=== PATIENT | male | born 1930 | race Caucasian/White ===

== ENCOUNTER → 2016-10-07 | Outpatient (CLI) | payer MEDICARE, BC ==
[~2016-10-07] MED LIST: OMNICEF 300MG300 MG PO; PERCOCET 325 MG1 TA2 PO; PRILOSEC 20MG20 MG PO; ULTRAM 50MG TAB50 MG PO; VYTORIN; VYTORIN 10 MG-21 TAB PO; XARELTO15 MG PO; XARELTO20 MG PO; ZOFRAN4 MG PO
== END ==
LOC: COL.RAD 13:30
DX: N20.0 Calculus of kidney (principal); R10.11 Right upper quadrant pain

== ENCOUNTER 2017-07-16 10:00 | Outpatient (RCR) | payer MEDICARE, BC | END 2017-07-25 09:20 | disposition home or self-care (01) | LOC: WSPT 10:00 | DX: M79.602 Pain in left arm (principal); M79.1 Myalgia | CPT/HCPCS: G8987-GO; G8988-GO ==

== ENCOUNTER 2018-05-30 19:12 | Emergency (ER) | payer MEDICARE, BC ==
[~2018-05-30] VITALS: Ht 182.9 cm; Wt 79.1 kg
[2018-05-30 19:16] VITALS: TEMP 96.7
[2018-05-30] MEDS ORDERED: CEPHALEXIN500 M1 PO (19:54)
[2018-05-30] MEDS ORDERED: DOXYCYCLINE 10100 MG PO (19:54)
[2018-05-30] MEDS ORDERED: ASPIRIN 81M81 MG/TA2 PO (20:03)
[2018-05-30] MEDS ORDERED: ARICEPT10 MG PO (20:05)
[2018-05-30 20:44] VITALS: BP 143/67; PULSE 55
== END 2018-05-30 20:50 | disposition home or self-care (01) ==
LOC: COL.ER 19:12
DX: L03.116 Cellulitis of left lower limb (principal); L03.115 Cellulitis of right lower limb; K21.9 Gastro-esophageal reflux disease without esophagitis; Z86.711 Personal history of pulmonary embolism; Z79.82 Long term (current) use of aspirin

== ENCOUNTER 2018-08-19 19:21 | Emergency (ER) | payer MEDICARE, BC ==
[~2018-08-19] VITALS: Ht 180.3 cm; Wt 77.3 kg
[~2018-08-19 19:21] MED LIST changes: +ARICEPT10 MG PO; +ASPIRIN 81M81 MG/TA2 PO; +CEPHALEXIN500 M1 PO; +DOXYCYCLINE 10100 MG PO
[2018-08-19 19:25] VITALS: TEMP 97.8
[2018-08-19 19:52] LABS: BASO # 0.1 (0.0-0.2); BASO % 1.2 % (0.0-2.0); EOS # 0.3 (0.0-0.7); EOS % 5.5 % (0-4.0); GRAN # 2.6 (1.4-6.5); GRAN % 45.1 % (42.2-75.2); HEMATOCRIT 41.5 % (42.0-52.0); HEMOGLOBIN 12.9 g/dl (13.5-18.0); LYMPH % 35.8 % (20.0-51.0); MEAN CELL VOLUME 95 fl (80.0-100.0); MEAN CORPUSCULAR HEMOGLOBIN 30 pg (27.0-31.0); MEAN CORPUSCULAR HGB CONC 31 g/dl (33.0-37.0); MEAN PLATELET VOLUME 9.8 fl (7.4-10.4); MONO # 0.7 (0.1-0.6); MONO % 12.2 % (1.7-9.3); PLATELET COUNT 225 K/mm3 (130-400); RED BLOOD COUNT 4.37 M/mm3 (4.20-5.60)
[2018-08-19 20:01] LABS: ALBUMIN 3.8 gm/dL (3.5-5.0); BILIRUBIN,TOTAL 0.3 mg/dL (0.0-1.0); CALCIUM 8.5 mg/dL (8.4-10.2); CREATININE, serum 1.31 mg/dL (0.66-1.25); POTASSIUM 3.8 mmol/L (3.4-5.0)
[2018-08-19 21:06] LABS: COLLECTION METHOD CLEAN CATCH
[2018-08-19 21:13] LABS: MUCOUS Present /lpf; PH 5 (5-8); SQUAMOUS EPITHELIAL 0-2 /hpf; URINE APPEARANCE Clear; URINE BACTERIA None Seen /hpf; URINE BILIRUBIN Negative (NEGATIVE); URINE BLOOD Negative (NEGATIVE); URINE COLOR Yellow; URINE GLUCOSE Negative (NEGATIVE); URINE KETONE Negative (NEGATIVE); URINE LEUKOCYTE ESTERASE Negative (NEGATIVE); URINE NITRATE Negative (NEGATIVE); URINE PROTEIN(semi-quant) Negative (NEGATIVE); URINE UROBILINOGEN Negative (NEGATIVE)
[2018-08-19 21:41] VITALS: BP 139/67; PULSE 56
== END 2018-08-19 21:45 | disposition home or self-care (01) ==
LOC: COL.ER 19:21
PROVIDERS: Emergency Medicine
DX: K40.90 Unilateral inguinal hernia, without obstruction or gangrene, not specified as recurrent (principal); N18.9 Chronic kidney disease, unspecified; K21.9 Gastro-esophageal reflux disease without esophagitis; E78.5 Hyperlipidemia, unspecified; Z87.442 Personal history of urinary calculi; Z98.890 Other specified postprocedural states; Z79.82 Long term (current) use of aspirin
CPT/HCPCS: J2405; J3010; J7030; J7040; Q9967

== ENCOUNTER 2018-09-01 05:29 | Day surgery (SDC) | payer MEDICARE, BC ==
[~2018-09-01] VITALS: Ht 182.9 cm; Wt 80.4 kg
[2018-09-01] MEDS ORDERED: CELEBREX 200MG200 MG PO (05:48)
[2018-09-01] MEDS ORDERED: ARICEPT10 MG PO (05:48)
[2018-09-01] MEDS ORDERED: TYLENOL 500MG500 MG PO (05:49)
[2018-09-01 06:10] VITALS: BP 156/71; PULSE 64; TEMP 98.5
--- NOTE | 2018-09-01 06:18 | NUR ---
TO RM AT 0536- CALL LIGHT IN REACH SONS AT BEDSIDE.
[2018-09-01 09:08] VITALS: BP 159/81; PULSE 69
--- NOTE | 2018-09-01 09:08 | NUR ---
TO RM 7 PER CART FROM [facility].R. ALERT ORIENTED X3, STILL HAVING SOME CONFUSION OF WHY NOW HE HAS PAIN ON RIGHT GROIN. AFTER REMINDING HIM OF SURGERY, HE WOULD STATE HE UNDERSTOOD. ODOM SET DRESSING ON INCISION SITE CLEAN DRY INTACT. C/O PAIN 4/10 AFTER EXPLAINING THE PAIN SCALE. RECEIVED WATER. SONS AT BEDSIDE.
[2018-09-01 09:25] VITALS: BP 171/85; PULSE 74
--- NOTE | 2018-09-01 09:25 | NUR ---
RECEIVED MUFFIN AND GRAPE JUICE.
[2018-09-01] MEDS ORDERED: MOTRIN 600600 MG/TAB PO (09:30)
[2018-09-01] MEDS ORDERED: COLACE 100100 MG/CAP PO (09:30)
[2018-09-01] MEDS ORDERED: NORCO 325 MG-51 TAB PO (09:31)
[2018-09-01 09:40] VITALS: BP 174/74; PULSE 61
--- NOTE | 2018-09-01 09:40 | NUR ---
SITTING UP EATING AND TALKING WITH SONS
--- NOTE | 2018-09-01 09:55 | NUR ---
UP AMBULATED WITH ASSIST TO BATHROOM. VOIDED AND TOLERATED WELL. UPON RETURNING STATED THE PAIN ON THAT RIGHT SIDE WAS WORSE.
--- NOTE | 2018-09-01 09:58 | NUR ---
RECEIVED CECIL 1 TAB.
[2018-09-01 10:10] VITALS: BP 157/75; PULSE 60
--- NOTE | 2018-09-01 10:10 | NUR ---
STATED HE PAIN IS STILL THERE, BUT IT ONLY HURTS WHEN I WIGGLE AND JIGGLE LIKE THIS. (PATIENT WIGGLING)
--- NOTE | 2018-09-01 10:30 | NUR ---
PATIENT AND BOTH SONS RECEIVED DISCHARGE INSTRUCTIONS AND VERBALIZED UNDERSTANDING. DISCONTINUED IV AND COVERED SITE WITH BAND AIDE SON RUDDY ASSISTED PATIENT DRESSED.
--- NOTE | 2018-09-01 10:40 | NUR ---
DISCHARGED PER WC BY NURSING STAFF TO PRIVATE CAR IN CARE OF SON- RICH.
== END 2018-09-01 11:00 | disposition home or self-care (01) ==
LOC: SDCO 05:29
DX: K40.90 Unilateral inguinal hernia, without obstruction or gangrene, not specified as recurrent (principal); Z79.82 Long term (current) use of aspirin; Z86.711 Personal history of pulmonary embolism; K21.9 Gastro-esophageal reflux disease without esophagitis; G89.29 Other chronic pain; M25.561 Pain in right knee; I25.10 Atherosclerotic heart disease of native coronary artery without angina pectoris; D64.9 Anemia, unspecified; G30.9 Alzheimer's disease, unspecified; F02.80 Dementia in other diseases classified elsewhere, unspecified severity, without behavioral disturbance, psychotic disturbance, mood disturbance, and anxiety; I10 Essential (primary) hypertension; E78.00 Pure hypercholesterolemia, unspecified; M19.90 Unspecified osteoarthritis, unspecified site; N32.81 Overactive bladder; Z85.46 Personal history of malignant neoplasm of prostate; Z80.9 Family history of malignant neoplasm, unspecified; Z88.6 Allergy status to analgesic agent
CPT/HCPCS: C1781; J0690; J2250; J2405; J2704; J3010; J7120

== ENCOUNTER → 2019-05-10 | Outpatient (CLI) | payer MEDICARE, BC ==
[~2019-05-10] MED LIST changes: +CELEBREX 200MG200 MG PO; +COLACE 100100 MG/CAP PO; +MOTRIN 600600 MG/TAB PO; +NORCO 325 MG-51 TAB PO; +TYLENOL 500MG500 MG PO
== END ==
LOC: MHCPAIN 12:54
DX: G89.29 Other chronic pain (principal); M79.2 Neuralgia and neuritis, unspecified
CPT/HCPCS: G0463

== ENCOUNTER → 2019-08-10 | Outpatient (CLI) | payer MEDICARE, BC | LOC: MHCPAIN 11:12 | DX: G57.82 Other specified mononeuropathies of left lower limb (principal); M79.2 Neuralgia and neuritis, unspecified | CPT/HCPCS: G0463 ==

== ENCOUNTER → 2019-12-01 | Outpatient (CLI) | payer MEDICARE, BC | LOC: MHCPAIN 14:40 | DX: R10.31 Right lower quadrant pain (principal); M79.2 Neuralgia and neuritis, unspecified; G89.29 Other chronic pain | CPT/HCPCS: G0463 ==

== ENCOUNTER → 2020-04-19 | Outpatient (CLI) | payer MEDICARE, BC ==
[2020-04-19 19:04] LABS: SYNOVIAL FL. MONONUCLEAR 33.7 % (0-75); SYNOVIAL FLUID RBC 7000 /mm3 (0-0); SYNOVIAL FLUID WBC 4582 /mm3 (200-600)
[2020-04-19 19:16] LABS: SYNOVIAL FLUID APPEARANCE HAZY; SYNOVIAL FLUID COLOR AMBER
== END ==
LOC: ZCOL.LAB 18:23
PROVIDERS: Orthopaedic Surgery
DX: M25.462 Effusion, left knee (principal)

== ENCOUNTER 2020-06-24 21:19 | Inpatient (IN) | payer MEDICARE, BC ==
[~2020-06-24] VITALS: Ht 182.9 cm; Wt 75.9 kg
[2020-06-24 22:04] LABS: BASO # 0.1 (0.0-0.2); BASO % 0.8 % (0.0-2.0); EOS # 0.2 (0.0-0.7); GRAN # 4.9 (1.4-6.5); GRAN % 64.4 % (42.2-75.2); HEMATOCRIT 44.8 % (42.0-52.0); HEMOGLOBIN 14.4 g/dl (13.5-18.0); LYMPH # 1.4 (1.2-3.4); LYMPH % 18.3 % (20.0-51.0); MEAN CELL VOLUME 94 fl (80.0-100.0); MEAN CORPUSCULAR HEMOGLOBIN 30 pg (27.0-31.0); MEAN CORPUSCULAR HGB CONC 32 g/dl (33.0-37.0); MONO # 1.1 (0.1-0.6); MONO % 14.1 % (1.7-9.3); PLATELET COUNT 260 K/mm3 (130-400); RED BLOOD COUNT 4.77 M/mm3 (4.20-5.60); REDCELL DISTRIBUTION WIDTH-CV 12.8 % (11.5-14.5)
[2020-06-24 22:13] LABS: ALBUMIN 4.1 gm/dL (3.5-5.0); BILIRUBIN,TOTAL 0.5 mg/dL (0.0-1.0); CALCIUM 8.8 mg/dL (8.4-10.2); CREATININE, serum 1.47 (0.66-1.25); POTASSIUM 4.4 mmol/L (3.4-5.0); TOTAL PROTEIN 7.4 gm/dL (6.4-8.2)
[2020-06-25 07:16] LABS: BASO # 0.1 (0.0-0.2); BASO % 0.7 % (0.0-2.0); EOS # 0.1 (0.0-0.7); GRAN # 4.6 (1.4-6.5); GRAN % 64.3 % (42.2-75.2); HEMATOCRIT 39.8 % (42.0-52.0); HEMOGLOBIN 12.5 g/dl (13.5-18.0); LYMPH # 1.3 (1.2-3.4); LYMPH % 18.4 % (20.0-51.0); MEAN CELL VOLUME 95 fl (80.0-100.0); MEAN CORPUSCULAR HEMOGLOBIN 30 pg (27.0-31.0); MEAN CORPUSCULAR HGB CONC 31 g/dl (33.0-37.0); MONO % 14.2 % (1.7-9.3); PLATELET COUNT 230 K/mm3 (130-400); RED BLOOD COUNT 4.17 M/mm3 (4.20-5.60); REDCELL DISTRIBUTION WIDTH-CV 12.8 % (11.5-14.5)
[2020-06-25 08:14] VITALS: BP 138/75; PULSE 56; TEMP 98.2
[2020-06-25 08:27] VITALS: BP 138/75; PULSE 56; TEMP 98.2
[2020-06-25 08:57] LABS: BILIRUBIN,TOTAL 0.5 mg/dL (0.0-1.0); CREATININE, serum 1.39 (0.66-1.25); POTASSIUM 4.3 mmol/L (3.4-5.0); TOTAL PROTEIN 5.7 gm/dL (6.4-8.2)
--- NOTE | 2020-06-25 09:18 | NUR ---
CALLED AND NOTIFIED THAT THE PATIENT HAS ARRIVED TO THE FLOOR AND IS IN ROOM 326.
[2020-06-25 11:30] LABS: CHOLESTEROL 191 mg/dL (120-200); TRIGLYCERIDE 85 mg/dL
[2020-06-25 12:08] VITALS: BP 123/57; PULSE 51; TEMP 98.4
--- NOTE | 2020-06-25 12:26 | NUR ---
RADIOLOGY CALLED ABOUT ULTRASOUND ORDER. NO MAIL MANAGER AVAILABLE UNTIL FRIDAY MORNING.
[2020-06-25 12:41] LABS: C-REACTIVE PROTEIN < 0.5 mg/dL (0.0-0.9)
[2020-06-25] MEDS ORDERED: ASPIRIN 81M81 MG/TA2 PO (13:05)
[2020-06-25] MEDS ORDERED: CELEBREX 200MG200 MG PO (13:05)
[2020-06-25] MEDS ORDERED: VOLTAREN GEL 1%1 TU TP (13:06)
--- NOTE | 2020-06-25 13:07 | NUR ---
MEDICATIONS REVIEWED WITH PATIENTS NELSON MURRAY. MEDICATION LIST UPDATED.
--- NOTE | 2020-06-25 14:32 | NUR ---
DOUGLAS met with patient about his Care. Patient is slightly hard of hearing. Patient reports that he resides independently. Patient reports that he does not remember his PCP or the last time he has been to the doctors. Patient reports that he does not have a POA but does has a Fredo but could not remember his sons phone number. From client census son's number is [phone]. Patient denies having issues with mobility or DME use. Will continue to work with client on obtaining safe DC.
[2020-06-25 15:54] VITALS: BP 147/60; PULSE 51; TEMP 98.5
--- NOTE | 2020-06-25 19:00 | NUR ---
PATIENT HAS DENIED PAIN THROUGHOUT THE SHIFT. NO COMPLAINTS OF NAUSEA. PATIENT CURRENTLY RESTING IN BED AND TALKING TO SON ON PHONE. BED ALARM ON. CALL LIGHT IN REACH. WILL REPORT OFF TO ONCOMING NURSE.
[2020-06-25 21:00] VITALS: BP 124/75; PULSE 46; TEMP 98.2
--- NOTE | 2020-06-25 22:09 | NUR ---
IV INFILTRATED TO LTUPPER ARM. RESTARTED #20G TO LT F/A. IVF'S CONTINUED. PT FORGETFUL AND HAS ANXIETY AT TIMES WHE CAN'T REMEMBER. PT [LEASANT AND COOPERATIVE AT THIS TIME. DENIES PAIN OR NAUSEA.
[2020-06-26] VITALS (7 sets, daily range): BP systolic 133–151; BP diastolic 56–75; PULSE 52–102; TEMP 98.1–99
--- NOTE | 2020-06-26 01:19 | NUR ---
NPO AT [place]
--- NOTE | 2020-06-26 01:40 | NUR ---
ASSISTED TO BR."I DONT KMOW WHERE THE HELL I AM." REORIENTED. WANTED SCD'S OFF/
[2020-06-26 07:32] LABS: BASO % 0.6 % (0.0-2.0); EOS # 0.2 (0.0-0.7); EOS % 2.9 % (0-4.0); GRAN # 3.8 (1.4-6.5); GRAN % 59.2 % (42.2-75.2); HEMATOCRIT 41.3 % (42.0-52.0); LYMPH # 1.6 (1.2-3.4); LYMPH % 25.1 % (20.0-51.0); MEAN CELL VOLUME 95 fl (80.0-100.0); MEAN CORPUSCULAR HEMOGLOBIN 30 pg (27.0-31.0); MEAN CORPUSCULAR HGB CONC 32 g/dl (33.0-37.0); MONO # 0.8 (0.1-0.6); PLATELET COUNT 226 K/mm3 (130-400); RED BLOOD COUNT 4.35 M/mm3 (4.20-5.60); REDCELL DISTRIBUTION WIDTH-CV 12.7 % (11.5-14.5)
[2020-06-26 07:46] LABS: ALBUMIN 3.2 gm/dL (3.5-5.0); BILIRUBIN,TOTAL 0.7 mg/dL (0.0-1.0); CALCIUM 8.2 mg/dL (8.4-10.2); CREATININE, serum 1.28 (0.66-1.25); POTASSIUM 4.2 mmol/L (3.4-5.0); TOTAL PROTEIN 5.8 gm/dL (6.4-8.2)
--- NOTE | 2020-06-26 08:00 | NUR ---
PATIENT IS ORIENTED X2 WITH NOTED FORGETFULNESS/CONFUSION. 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 NOTED LOW GRADE TEMP OF 99.0, GAVE TYLENOL WITH AM MEDS. ALL OTHER VSS. PATIENT DENIES PAIN. PATIENT ALSO NEEDS REMINDING WHY HE IS IN THE HOSPITAL. CURRENTLY NPO FOR US AND POSSIBLE SURGERY TODAY. BED ALARM ON. HEAD TO TOE ASSESSMENT COMPLETE.
--- NOTE | 2020-06-26 11:23 | NUR ---
First visit from the stamp collector. No needs right now.
--- NOTE | 2020-06-26 14:09 | NUR ---
SW contacted the patient's son, Fredo (ph#[phone], c.ph#[phone]), to review d/c plan. Fredo confirms that the patient lives alone in [place] and is independent with ADLs. The patient refuses any DME. Fredo reports that he lives in [facility] and has no concerns with the patient returning back home upon discharge. SW to continue to follow.
--- NOTE | 2020-06-26 14:15 | NUR ---
NURSING STAFF HAS TALKED WITH SON, TWICE TODAY WITH PATIENT STATUS UPDATES. PATIENT'S SON CALLED AGAIN WITH ANOTHER UPDATE, MESSAGE LEFT.
--- NOTE | 2020-06-26 16:20 | NUR ---
US TECH NOW AT BEDSIDE. PATIENT HAS BEEN WAITING FOR US ALL DAY. DIET HAD BEEN CHANGED TO FAT CONTROLED HOWEVER, PATIENT HAD NOT ATE YET WHEN THE US TECH SHOWED UP.
--- NOTE | 2020-06-26 20:00 | NUR ---
Pt making attempts to get out of bed without help. Pt able to state correctly: name//year/hospital location, yet confused about situatiom. Pt reoriented to call light and requirement to call before getting up to bathroom. Later, pt tripping bed alarm stating "no one has been in here to check on me for 6 hours", reorientation provided. Bed alarm on, floor staff briefed on fall risk, confusion and need for bed alarm along with reorientation.
[2020-06-27 04:00] VITALS: BP 161/60; PULSE 54; TEMP 98.2
[2020-06-27 06:27] LABS: BASO # 0.1 (0.0-0.2); BASO % 0.8 % (0.0-2.0); EOS # 0.2 (0.0-0.7); EOS % 3.4 % (0-4.0); GRAN # 3.6 (1.4-6.5); GRAN % 58.8 % (42.2-75.2); HEMATOCRIT 37.9 % (42.0-52.0); HEMOGLOBIN 12.4 g/dl (13.5-18.0); LYMPH # 1.5 (1.2-3.4); LYMPH % 24.1 % (20.0-51.0); MEAN CELL VOLUME 92 fl (80.0-100.0); MEAN CORPUSCULAR HEMOGLOBIN 30 pg (27.0-31.0); MEAN CORPUSCULAR HGB CONC 33 g/dl (33.0-37.0); MEAN PLATELET VOLUME 10.1 fl (7.4-10.4); MONO # 0.8 (0.1-0.6); MONO % 12.7 % (1.7-9.3); PLATELET COUNT 214 K/mm3 (130-400); RED BLOOD COUNT 4.12 M/mm3 (4.20-5.60); REDCELL DISTRIBUTION WIDTH-CV 12.6 % (11.5-14.5)
[2020-06-27 06:38] LABS: BILIRUBIN,TOTAL 0.7 mg/dL (0.0-1.0); CALCIUM 8.2 mg/dL (8.4-10.2); CREATININE, serum 1.28 (0.66-1.25); TOTAL PROTEIN 5.7 gm/dL (6.4-8.2)
[2020-06-27 07:40] VITALS: BP 163/75; PULSE 58; TEMP 97.4
--- NOTE | 2020-06-27 09:15 | NUR ---
PATIENT GOING DOWN TO SURGERY. CONSENT OBTAINED FROM SON WITH 2 RN'S DUE TO PATIENT'S HX OF DEMENTIA. CONSENT ON CHART. FLUIDS TO GRAVITY. PATIENT PLACED INTO A GOWN AND WAS ABLE TO TALK TO SON ON THE PHONE BEFORE GOING DOWN TO OR. PATIENT NOW OFF THE FLOOR.
[2020-06-27 16:00] VITALS: BP 147/73; PULSE 75
--- NOTE | 2020-06-27 16:30 | NUR ---
PATIENT TRYING TO GET UP REPEATEDLY. PATIENT IS VERY CONFUSED POST OP AND EXPRESSES C/O PAIN AND FEELS THE URGE TO VOID. PATIENT WAS GIVEN PRN DILAUDID FOR SEVERE ABD PAIN. PATIENT NOW ASSISTED TO BEDSIDE COMMODE TO URINATE.
--- NOTE | 2020-06-27 19:10 | NUR ---
Received report from Chana. Seen patient awake in bed. He is alert and confused. He was just complaining that he is having a hard time burping. With Iv on right forearm infusing NS @ 75ml/hr. Lap den[place] sites are clean, dry and intact. No dressing noted. Bed alarm on.
[2020-06-27 20:00] VITALS: BP 137/61; PULSE 81; TEMP 99.4
[2020-06-27 23:37] VITALS: BP 136/96; PULSE 71; TEMP 98.5
--- NOTE | 2020-06-27 23:40 | NUR ---
Patient complains of pain on his right abdomen. Percocet given. He did tried to get out of bed couple times as he wanted to use the urinal. Re-instructed on how to use the call light for help. Bed alarm on.
[2020-06-28 04:21] VITALS: BP 122/69; PULSE 59; TEMP 98.7
--- NOTE | 2020-06-28 06:30 | NUR ---
Bedside shift report received from CATHLEEN Mcpherson. PT in bed with bed alarm on, pt wanting to discuss everything, reviewed plan of care. Pt seems confused but not trying to get out of bed. Alarm on, will continue to monitor.
--- NOTE | 2020-06-28 06:38 | NUR ---
Patient had been up couple times and was wondering why he suddenly woke up in the middle of the night. He would go to the bathroom to urinate. Had complains of pain on his abdomen once. Percocet given.
[2020-06-28 07:22] VITALS: BP 121/61; PULSE 56; TEMP 98.9
--- NOTE | 2020-06-28 09:48 | NUR ---
Assessment charted. Pt resting in bed this am napping, upon awakening pt is disoriented again and needs reassurance of wherabouts and plan of care. Talked to son, Earnest and relayed conversation to pt and he seems upset that he didn't have conversation with Earnest. Called Fabiana regarding pt confusion and that he lives at home. ORders received and implemented. IVF to RFA. Abd 4 lap sites are well approximated, tylenol given per request. Will continue to monitor.
[2020-06-28 09:57] LABS: BASO % 0.1 % (0.0-2.0); EOS % 0.1 % (0-4.0); GRAN # 10.8 (1.4-6.5); GRAN % 84.9 % (42.2-75.2); HEMATOCRIT 37.9 % (42.0-52.0); HEMOGLOBIN 12.4 g/dl (13.5-18.0); LYMPH # 0.9 (1.2-3.4); LYMPH % 6.9 % (20.0-51.0); MEAN CELL VOLUME 92 fl (80.0-100.0); MEAN CORPUSCULAR HEMOGLOBIN 30 pg (27.0-31.0); MEAN CORPUSCULAR HGB CONC 33 g/dl (33.0-37.0); MEAN PLATELET VOLUME 10.2 fl (7.4-10.4); MONO % 7.6 % (1.7-9.3); PLATELET COUNT 189 K/mm3 (130-400); RED BLOOD COUNT 4.11 M/mm3 (4.20-5.60); REDCELL DISTRIBUTION WIDTH-CV 12.6 % (11.5-14.5)
[2020-06-28 10:04] LABS: ALBUMIN 3.2 gm/dL (3.5-5.0); BILIRUBIN,TOTAL 0.6 mg/dL (0.0-1.0); CALCIUM 8.1 mg/dL (8.4-10.2); CREATININE, serum 1.32 (0.66-1.25); POTASSIUM 3.9 mmol/L (3.4-5.0); TOTAL PROTEIN 5.9 gm/dL (6.4-8.2)
[2020-06-28 11:13] VITALS: BP 128/56; PULSE 54; TEMP 97.5
--- NOTE | 2020-06-28 16:15 | NUR ---
Pt discharged at this time. Pt is alert, able to ambualte well, per Fabiana feels cognition will improve when in home environment. INT dc'd, tip intact. Pt left with all bleonigngs, reviewed discharge packet with pt as well as son at car. Pt escorted out via w/c with all belongings by myself. Denies needs, family to drive home, criteria met.
== END 2020-06-28 16:15 | disposition home or self-care (01) | DRG 419 ==
LOC: COL.ER 21:19 → SURG 23:40
PROVIDERS: Emergency Medicine; ADMIT Surgery
PROC: 8E0W4CZ Robotic Assisted Procedure of Trunk Region, Percutaneous Endoscopic Approach (ICD-10-PCS; 2020-06-27)
PROC: 0FT44ZZ Resection of Gallbladder, Percutaneous Endoscopic Approach (ICD-10-PCS; principal; 2020-06-27 16:15)
DX: K85.10 Biliary acute pancreatitis without necrosis or infection (principal); K21.00 Gastro-esophageal reflux disease with esophagitis, without bleeding; M19.90 Unspecified osteoarthritis, unspecified site; E78.5 Hyperlipidemia, unspecified; N18.9 Chronic kidney disease, unspecified; Z85.46 Personal history of malignant neoplasm of prostate
CPT/HCPCS: A9284; C9113; J1100; J1170; J2270; J2405; J2704; J3010; J7030; J7120; Q9967